=== PATIENT | female | born 1995 | race Caucasian/White ===

== ENCOUNTER 2016-11-22 10:19 | Emergency (ER) | payer BC, OTHER ==
[~2016-11-22] VITALS: Ht 167.6 cm; Wt 71.0 kg
[2016-11-22 10:24] VITALS: TEMP 36.7; Ht 167.6 cm; Wt 71.0 kg
--- NOTE | 2016-11-22 11:05 | DIAGNOSTIC IMAGING REPORT ---
LEFT HAND MIN 3 VIEWS ROUTINE CLINICAL HISTORY: Left hand pain status post trauma COMPARISON: None. DISCUSSION: No fractures or dislocations are visualized. IMPRESSION: No fractures identified. Electronically signed by: Dhaval Emmanuel M.D. 11/22/2016 11:02 AM Dictated Date/Time: 11/22/2016 10:57 AM
[2016-11-22] MEDS ORDERED: OXYC-57 PO (11:07)
[2016-11-22 11:34] VITALS: BP 113/69; PULSE 72; O2SAT 97
--- NOTE | 2016-11-22 11:35 | EMERGENCY ROOM VISIT NOTE ---
History Report prepared by Yanelisibbryan: Shanna Ibarra Under the Supervision of: Dr. Placido Baker M.D. First contact with patient: 10:53 Chief Complaint: HAND PAIN/INJURY Stated Complaint: SWOLLEN KNUCKLE (MIDDLE), PAIN WHEN GRIPPING History of Present Illness The patient is a 21 year old female who presents to the Emergency Room with complaints of persistent left hand pain starting last night. The patient was drinking alcohol and punched a wall. She denies taking anything for the pain. She has worsening pain with movement. She denies fevers, chills, or any other complaints. Source of History: patient Onset: last night Position: hand (left) Timing: other (persistent) Modifying Factors (Worsening): movement Associated Symptoms: No chills, No fevers Review of Systems See HPI for pertinent positives & negatives. A total of 10 systems reviewed and were otherwise negative. Past Medical & Surgical Medical Problems: (1) Neck fracture Family History Patient reports no known family medical history. Social History Smoking Status: Never Smoker Marital Status: single Occupation Status: [employer] student Current/Historical Medications Scheduled PRN Oxycodone/Acetaminophen 5MG/325MG (Percocet 5MG/325MG), 1-2 TAB PO Q4H PRN for Pain Allergies Coded Allergies: No Known Allergies (Unverified , 11/22/16) Physical Exam Vital Signs Date Time Temp Pulse Resp B/P Pulse Ox O2 Delivery O2 Flow Rate FiO2 11/22/16 11:34 72 19 113/69 97 11/22/16 10:24 36.7 78 18 123/74 98 Room Air Physical Exam GENERAL: Patient is a healthy-appearing well-nourished HEAD: Normocephalic atraumatic EYES: Ocular movements intact pupils equal and react to light OROPHARYNX mucous membranes are moist no exudates present no erythema or edema present NECK: Supple no nuchal rigidity CHEST: Good equal expansion LUNGS: Clear and equal to auscultation CARDIAC: Normal S1 and S2 ABDOMEN: Soft nontender no guarding BACK: No CVA tenderness EXTREMITIES: Normal muscle strength in all groups no clubbing cyanosis or edema. Swelling and tenderness to the left, third and fourth metacarpal area, good range of motion of the fingers, neurovascularly intact. NEURO: Patient is following commands is answering questions appropriately. Alert and oriented x3 Cranial Nerves 2-12 grossly intact Medical Decision & Procedures ER Provider Diagnostic Interpretation: X-ray results as stated below per interpretation by me and the radiologist: LEFT HAND MIN 3 VIEWS ROUTINE CLINICAL HISTORY: Left hand pain status post trauma COMPARISON: None. DISCUSSION: No fractures or dislocations are visualized. IMPRESSION: No fractures identified. Electronically signed by: Dhaval Emmanuel M.D. 11/22/2016 11:02 AM Dictated Date/Time: 11/22/2016 10:57 AM ED Course 1053: Past medical records reviewed. The patient was evaluated in room B03B. A complete history and physical examination was performed. 1130: Upon reexamination the patient is resting comfortably. I discussed results and treatment plan with the patient. She verbalizes agreement and understanding. The patient is ready for discharge. Medical Decision Differential diagnosis: Etiologies such as fracture, dislocation, neurovascular compromise, compartment syndrome, soft tissue injury, as well as others were entertained. This is a 21-year-old female who presents emergency department complaining of hand pain. The patient punched a wall Tuesday night and is not complaining of knuckle pain. She is tender to the second and third metacarpal. For this reason the patient was placed in a splint. Her x-rays do not show any evidence of fracture dislocation or subluxation. I stressed the need for follow-up with orthopedics if the patient was continuing to have pain within 1 week. The patient was written for Percocet and ibuprofen. She was given instructions to ice and elevate the hand. Impression Primary Impression: Pain in metacarpus Scribe Attestation The scribe's documentation has been prepared under my direction and personally reviewed by me in its entirety. I confirm that the note above accurately reflects all work, treatment, procedures, and medical decision making performed by me. Departure Information Dispostion Home / Self-Care Prescriptions Oxycodone/Acetaminophen 5MG/325MG (PERCOCET 5MG/325MG) Tab 1-2 TAB PO Q4H Y for Pain, #14 TAB Prov: Placido Baker MD 11/22/16 Referrals Nba Hernandez, DO Forms HOME CARE DOCUMENTATION FORM, IMPORTANT VISIT INFORMATION, School Instructions, Work Instructions Patient Instructions ED Sprain Hand, My [facility] Additional Instructions You received narcotic or benzodiazepene medication while in the emergency room today. Do not drive, operate heavy machinery, or drink alcohol under the influence of this medication. Take 600 mg Ibuprofen every 6 hours Take Percocet for breakthrough pain Follow up with Dr Hernandez's office for continued hand pain You have been examined and treated today on an emergency basis only. This is not a substitute for, or an effort to provide, complete comprehensive medical care. It is impossible to recognize and treat all injuries or illnesses in a single emergency department visit. It is therefore important that you follow up closely with [facility]. Call as soon as possible for an appointment. Thank you for your time and consideration. I look forward to speaking with you again soon. Please don't hesitate to call us if you have any questions. Problem Qualifiers Primary Impression: Pain in metacarpus Laterality: left Qualified Codes: M79.642 - Pain in left hand
== END 2016-11-22 11:35 | disposition home or self-care (01) ==
LOC: C.EDB 10:22
DX: M79.642 Pain in left hand (principal); W22.09XA Striking against other stationary object, initial encounter; Y93.89 Activity, other specified; Y99.8 Other external cause status